=== PATIENT | male | born 1950 | race Caucasian/White ===

== ENCOUNTER 2017-08-06 18:14 | Emergency (ER) | payer MEDICARE, OTHER ==
[~2017-08-06] VITALS: Ht 182.9 cm; Wt 94.0 kg
[2017-08-06 18:32] VITALS: BP 148/78; PULSE 74; RESP 16; TEMP 97.9; O2SAT 98
[2017-08-06] MEDS ORDERED: LISI-515 PO (18:54)
[2017-08-06] MEDS ORDERED: AZIT250T3 PO (19:19)
[2017-08-06] MEDS ORDERED: BENZ100 PO (19:19)
[2017-08-06] MEDS ORDERED: PRED20 PO (19:19)
--- NOTE | 2017-08-06 19:26 | PD ---
HPI Chief Complaint: Cold / Flu Symptoms Time Seen by Provider: 18:49 Travel History International Travel<30 days: No Contact w/Intl Traveler<30days: No Traveled to known affect area: No History of Present Illness HPI 67-year-old male that presents to the ED for evaluation of cold-like symptoms. Per patient he has cold like symptoms for about one week. Per patient she started having cough and congestion. Per patient his hacking of yellow greens sputum. He denies any other medical issues other than hypertension. Per patient he believes that he may be having allergies from the pollen As she is not from here is recently traveling here but symptoms have not improved. Denies any history of smoking. Allergies to codeine. No chest pain or shortness of breath. Per patient he had a bad cough spell today which made him come here. He denies any other medical issues. No history of asthma. History of COPD. Cough is productive. Per patient he does have a sore throat and congestion. He denies any sick contacts. PFSH Past Medical History Cancer: Yes (lymphoma ) Cardiovascular Problems: Yes (htn on meds) Diminished Hearing: Yes Hypertension: Yes Medical other: Yes (chronic knee and back issues ) Tetanus Vaccination: > 5 Years Influenza Vaccination: Yes Past Surgical History Thoracic Surgery: Yes (tumor on back removed ) Social History Alcohol Use: No Tobacco Use: No Substance Use: No Allergies-Medications (Allergen,Severity, Reaction): Coded Allergies: codeine (Verified Allergy, Intermediate, abd pain, 08/06/17) Reported Meds & Prescriptions Reported Meds & Active Scripts Active Azithromycin 250 Mg Tab 250 Mg PO DIRECTED Take 2 tabs (500 mg) on day 1 then 1 tab daily x 4 days. Tessalon Perles (Benzonatate) 100 Mg Cap 100 Mg PO TID PRN Prednisone 20 Mg Tab 20 Mg PO BID 5 Days Reported Lisinopril 20 Mg Tab 20 Mg PO DAILY Review of Systems Except as stated in HPI: all other systems reviewed are Neg Physical Exam Narrative GENERAL: Well-nourished, well-developed patient in no apparent distress. SKIN: Warm and dry. HEAD: Atraumatic. Normocephalic. EYES: Pupils equal and round reactive to light and accommodation. No scleral icterus. No injection or drainage. ENT: No nasal bleeding or discharge. Mucous membranes pink and moist. TMs are clear with no sign of infection or perforation. No mastoid tenderness. Ear canals are intact bilaterally. No lymphadenopathy. Nostril mucosa is red and moist with clear mucus noted. No sinus tenderness to palpation noted. Tonsils are not enlarged or swollen. No ulvua Deviation. Tongue is midline. NECK: Trachea midline. No JVD. No meningeal signs noted CARDIOVASCULAR: Regular rate and rhythm. RESPIRATORY: No accessory muscle use. Clear to auscultation. Breath sounds equal bilaterally. GASTROINTESTINAL: Abdomen soft, non-tender, nondistended. Hepatic and splenic margins not palpable. MUSCULOSKELETAL: Extremities without clubbing, cyanosis, or edema. No obvious deformities. NEUROLOGICAL: Awake and alert. No obvious cranial nerve deficits. Motor grossly within normal limits. Five out of 5 muscle strength in the arms and legs. Normal speech. PSYCHIATRIC: Appropriate mood and affect; insight and judgment normal. Data Data Last Documented VS Vital Signs Date Time Temp Pulse Resp B/P (MAP) Pulse Ox O2 Delivery O2 Flow Rate FiO2 08/06/17 18:32 97.9 74 16 148/78 (101) 98 Orders Orders Chest, Single Ap (08/06/17 ) [facility] Medical Decision Making Medical Screen Exam Complete: Yes Emergency Medical Condition: Yes Medical Record Reviewed: Yes Interpretation(s) Chest x-ray shows negative for acute disease. Differential Diagnosis Pneumonia versus bronchitis versus sinusitis Narrative Course 67-year-old male that presents to the ED for evaluation of symptoms. Patient was properly examined and was found to have signs and symptoms consistent with likely bronchitis versus pneumonia. We'll do chest x-ray to rule out pneumonia. Chest x-ray was negative. Likely bronchitis. Will treat with antibiotic, prednisone and Tessalon Perles. Told to take OTC medicines as needed. Follow with PCP. See ED worsening symptoms. Diagnosis Primary Impression: Acute bronchitis Qualified Codes: J20.9 - Acute bronchitis, unspecified Patient Instructions: General Instructions Additional Instructions: Motrin and Tylenol for pain and fever. You can use [id number] antihistamine as well as well as Mucinex as needed for runny nose and congestion. Cough drops for cough as needed. Drink plenty of fluids. Follow-up with PCP. See ED for worsening symptoms. Med/Other Pt SpecificInfo: Prescription(s) given Scripts Azithromycin (Azithromycin) 250 Mg Tab 250 MG PO DIRECTED for Infection, #6 TAB 0 Refills Take 2 tabs (500 mg) on day 1 then 1 tab daily x 4 days. Prov: Kim Nguyen DO 08/06/17 Benzonatate (Tessalon Perles) 100 Mg Cap 100 MG PO TID Y for COUGH, #20 CAP 0 Refills Prov: Kim Nguyen DO 08/06/17 Prednisone (Prednisone) 20 Mg Tab 20 MG PO BID for 5 Days, #10 TAB 0 Refills Prov: Kim Nguyen DO 08/06/17 Disposition: 01 DISCHARGE HOME Condition: Stable Lupillo Leblanc Aug 06, 2017 19:25
--- NOTE | 2017-08-06 20:04 | RADRPT ---
EXAM DATE/TIME: 08/06/2017 19:21 [facility] COMPARISON: No previous studies available for comparison. INDICATIONS : Cough. MEDICAL HISTORY : None. SURGICAL HISTORY : None. ENCOUNTER: Initial ACUITY: 1 week PAIN SCORE: 0/10 LOCATION: Bilateral chest FINDINGS: A single view of the chest demonstrates the lungs to be symmetrically aerated without evidence of mas s, infiltrate or effusion. The cardiomediastinal contours are unremarkable. Osseous structures are intact. CONCLUSION: The lungs are clear. Henri Cartwright MD on August 06, 2017 at 20:02 Board Certified Radiologist. This report was verified electronically.
== END 2017-08-06 20:08 | disposition home or self-care (01) ==
LOC: PHEFT 18:14
DX: J20.9 Acute bronchitis, unspecified (principal); I10 Essential (primary) hypertension
CPT/HCPCS: 71045; 99283